=== PATIENT | male | born 1960 | race African-American/Black ===

== ENCOUNTER 2019-08-31 13:35 | Emergency (ER) | payer OTHER ==
[~2019-08-31] VITALS: Ht 177.8 cm; Wt 82.1 kg
[2019-08-31] MEDS ORDERED: NORCO 5-325 TA1 EAC1 PO (15:19)
[2019-08-31] MEDS ORDERED: KEFLEX500 M1 PO (15:19)
[2019-08-31 15:45] VITALS: BP 97/62
== END 2019-08-31 15:47 | disposition home or self-care (01) ==
LOC: ER 13:35
DX: S71.111A Laceration without foreign body, right thigh, initial encounter (principal); I10 Essential (primary) hypertension; E11.9 Type 2 diabetes mellitus without complications; F32.9 Major depressive disorder, single episode, unspecified; W26.8XXA Contact with other sharp object(s), not elsewhere classified, initial encounter; Y93.39 Activity, other involving climbing, rappelling and jumping off; Y92.89 Other specified places as the place of occurrence of the external cause; Y99.8 Other external cause status